=== PATIENT | male | born 1980 | race Caucasian/White ===

== ENCOUNTER 2016-05-06 09:29 | Emergency (ER) | payer OTHER ==
[~2016-05-06] VITALS: Ht 172.7 cm; Wt 70.0 kg
[2016-05-06] MEDS ORDERED: KEPP500 PO (09:38)
[2016-05-06] MEDS ORDERED: SODIUM CHLORIDE 0.9% 1,000 ML IV ONE (09:50)
[2016-05-06 10:04] LABS: BASOPHILS % 0.6 % (0.0-2.0); HEMATOCRIT. 39.6 % (42.0-52.0); MEAN CORPUSCULAR HEMOGLOBIN 32.7 pg (28.0-32.0); MEAN CORPUSCULAR HGB CONC 32.8 g/dL (31.0-37.0); MEAN CORPUSCULAR VOLUME 99.7 fL (80.0-94.0); MONOCYTES % 5.9 % (2.0-8.0); NEUTROPHILS % 80.5 % (40.0-76.0); PLATELET 192 x1000/uL (130-400); RED BLOOD CELL COUNT 3.97 mill/uL (4.7-6.1); RED CELL DISTRIBUTION WIDTH 23.2 % (11.6-14.6); WHITE BLOOD COUNT 5.1 x1000/uL (4.5-11.0)
[2016-05-06 10:10] LABS: DIFFERENTIAL COMMENT 1
[2016-05-06 10:11] LABS: ADD RBC MORPHOLOGY YES; CHLORIDE 113 mEq/L (98-107); INDEX HEMOLYSI 1 (1-3); INDEX ICTERIC 1 (1-4); INDEX LIPEMIC 1 (1-3)
[2016-05-06 10:13] LABS: INR 1.1; PARTIAL THROMBOPLASTIN TIME 23.7 sec (24.0-34.0); PROTHROMBIN TIME 11.4 sec
[2016-05-06 10:15] LABS: ANION GAP 12; CALCIUM 8.2 mg/dL (8.5-10.1); CARBON DIOXIDE 21 mEq/L (21-32); ETHANOL BLOOD < 10 mg/dL; UREA NITROGEN BLOOD 20 mg/dL (7-21)
[2016-05-06] MEDS ORDERED: LEVETIRACETAM 500MG TABLET PO ONE (10:15)
[2016-05-06 10:18] LABS: eGFR > 60 mL/min (>60)
[2016-05-06 10:27] LABS: PLATELET ESTIMATE NORMAL
[2016-05-06 10:28] LABS: *AMPHETAMINES SCREEN URINE NEGATIVE (NEGATIVE); *BARBITURATES SCREEN URINE NEGATIVE (NEGATIVE); *BENZODIAZEPINES SCREEN URINE PRESUMTIVE POSITIVE (NEGATIVE); *COCAINE SCREEN URINE NEGATIVE (NEGATIVE); CANNABINOID URINE SCREEN NEGATIVE (NEGATIVE); ECSTASY MDMA SCREEN URINE NEGATIVE (NEGATIVE); METHADONE URINE SCREEN NEGATIVE (NEGATIVE); OPIATES URINE SCREEN NEGATIVE (NEGATIVE); PHENCYCLIDINE URINE SCREEN NEGATIVE (NEGATIVE)
[2016-05-06 10:29] LABS: ANISOCYTOSIS 2+
[2016-05-06 10:30] LABS: HYPOCHROMASIA 1+
[2016-05-06 11:40] VITALS: BP 100/56
== END 2016-05-06 12:35 | disposition left against medical advice (07) ==
LOC: ER 09:41
DX: G40.909 Epilepsy, unspecified, not intractable, without status epilepticus (principal); Z79.899 Other long term (current) drug therapy
CPT/HCPCS: 36415; 70450; 80048; 80305; 82962; 85025; 85610; 85730; 96360; 96361; 99285; G0482; J7030; Z7610